=== PATIENT | male | born 2000 | race Caucasian/White ===

== ENCOUNTER 2024-10-20 18:29 | Emergency (ER) | payer OTHER, SELFPAY ==
[2024-10-20 18:33] VITALS: BP 163/88
[2024-10-20 19:01] LABS: % Basophils 0.3 % (0-2); % Eosinophils 0.2 % (0-6); % Immature Granulocytes 0.3 % (0-0.5); % Lymphocytes 14.5 % (20.5-51.1); % Monocytes 6.6 % (1.7-9.3); % Neutrophils 78.1 % (42.2-75.2); Absolute Lymphocytes 1.6 10^3/uL (1.2-3.4); Absolute Monocytes 0.7 10^3/uL (0.1-0.6); Absolute Neutrophils 8.4 10^3/uL (1.4-6.5); Hematocrit 46.8 % (39.0-52.0); Hemoglobin 16.4 g/dL (13.0-18.0); Mean Corpuscular Hgb 31.2 pg (27.0-31.0); Mean Corpuscular Volume 89.1 fL (80.0-94.0); Mean Platelet Volume 9.6 fL (7.4-10.4); Nucleated Red Blood Cells % 0 % (-); Platelet Count 205 10^3/uL (130-400); Red Blood Cell Count 5.25 10^6/uL (4.70-6.10); Red Cell Dist. Width 12.7 % (11.5-14.5); White Blood Cell Count 10.8 10^3/uL (4.8-10.8)
[2024-10-20 19:15] LABS: ALT (SGPT) 43 U/L (0-50); AST (SGOT) 51 U/L (17-59); Albumin 4.8 g/dl (3.5-5.0); Alkaline Phosphatase 54 U/L (38-126); Blood Urea Nitrogen 30 mg/dl (9-20); Calcium 9.3 mg/dl (8.4-10.2); Carbon Dioxide 25 mmol/L (22-30); Chloride 98 mmol/L (98-107); Glucose 138 mg/dl (70-99); Potassium 3.5 mmol/L (3.5-5.1); Sodium 135 mmol/L (135-145); Total Bilirubin 0.8 mg/dl (0.2-1.3); Total Protein 7.1 g/dl (6.3-8.2); eGFR > 60.00
[2024-10-20 19:44] LABS: TSH Reflex To Free T4 3.07 uIU/ml (0.47-4.68)
[2024-10-20 23:14] VITALS: BMI 27.9
[2024-10-20 23:18] VITALS: BP 142/69
[2024-10-21 00:43] LABS: Alcohol None Detected
--- NOTE | 2024-10-21 02:03 | ED.GENMED ---
History of Present Illness
General
Chief Complaint: Medication Reaction
Source: patient and family (Mother and father who are at bedside)
Exam Limitations: none
Time Seen by Provider: 10/20/24 23:49
Nursing documentation reviewed up to this point in time: agreed with
History of Present Illness
History of Present Illness:
This is a 24-year-old male who resides at home with his parents. He admits to prior history of anabolic steroid use which he had been purchasing online but states he discontinued this over a year ago and instead, at least over the past year and a
half he has been purchasing on-line Ibutamoren injectable to build muscle as well as taking multiple mtwh-szi-jczhuib oral supplements including enclomiphene.
Parents bring their son to the ED tonight for evaluation after they have noticed change in his behavior, change in his demeanor more so over the past 3 days where he has been less communicative, withdrawn.
Patient admits that he has difficulty focusing, difficulty with his memory but readily recalls what supplements and medications he has been taking.
He denies alcohol nor drug use.
He takes no prescription medications.
He denies falls or injuries.
When asked if he has been having thoughts of hurting himself or ending his life, he hesitates but then responds that he has had some fleeting thoughts of wanting to hurt himself but no specific plan.
No prior history of psychiatric disorder, no prior history of self injury.
Past History
Past History
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
ED Past Surgical History: Cardiac (WPW ablation at 10 years of age)
Social History
Tobacco: Non-smoker
Alcohol: None
Drug: None
Personal: Single
Living: with family
Employment: Not employed
Family History
Family History: Other (Noncontributory)
Phy Exam
Physical Exam
Physical Exam:
GENERAL: 24-year-old overweight gentleman appears his stated age, awake and alert, oriented x 3. Exhibits a moderately blunted affect. Somewhat guarded but cooperative. Both parents are accompanying.
EYE: pupils equal and reactive. anicteric
NECK: Supple, nontender, no meningismus, no significant adenopathy.
ENT: oral mucosa is moist. No rhinorrhea.
CARDIAC: Regular rate and rhythm. no murmur.
LUNGS: Clear breath sounds bilaterally, no acute respiratory distress, no wheezes/rales/rhonchi
ABDOMEN: Soft, nondistended, without focal tenderness
NEUROLOGICAL: Alert and oriented x3, no focal neuro deficits. Gait is steady.
SKIN: Warm and dry, normal color, skin intact. No rash.
MUSCULOSKELETAL: No C/C/E. peripheral pulses are full and equal b/l. No palpable tenderness.
PSYCH: Moderately blunted affect. Somewhat guarded. When prompted, admits to rare fleeting thoughts of suicide but no definitive plan and no prior history. He denies hallucinations.
Course
Orders/Labs/Results
Orders:
Orders
10/20/24 18:47
ECG [Electrocardiogram (*1)] Urgent
Reason for Study: Palpitations
EKG- Treatment ONCE
10/20/24 18:53
Alcohol Urgent
Complete Blood Count/With Diff Urgent
Comprehensive Metabolic Panel Urgent
TSH Reflex To Free T4 Urgent
10/20/24 23:33
Urine Drug Abuse Screen Urgent
Date Specimen was Collected: 10/21/24
Time Specimen was Collected: 02:25
10/20/24 23:34
Add On- LAB Urgent
Tests Added?: ETOH
10/21/24 00:02
CT Head W/o Iv Contrast Urgent
Reason For Exam: change in MS-confusion
Abnormal Lab Results
10/20/24
18:53
MCH 31.2 H pg
(27.0-31.0)
Absolute Neuts (auto) 8.4 H 10^3/uL
(1.4-6.5)
Absolute Monos (auto) 0.7 H 10^3/uL
(0.1-0.6)
Neutrophils % 78.1 H %
(42.2-75.2)
Lymphocytes % 14.5 L %
(20.5-51.1)
BUN 30 H mg/dl
(9-20)
Glucose 138 H mg/dl
(70-99)
10/20/24 18:53
10/20/24 18:53
Vital Signs
Initial and Last Documented VS:
Initial Vital Signs
Temp Pulse Resp BP Pulse Ox
98.3 F 99 22 163/88 98
10/20/24 18:33 10/20/24 18:33 10/20/24 18:33 10/20/24 18:33 10/20/24 18:33
Last Documented Vital Signs
Temp Pulse Resp BP Pulse Ox
98.3 F 99 22 142/69 95
10/20/24 18:33 10/20/24 18:33 10/20/24 18:33 10/20/24 23:18 10/20/24 23:30
MDM/Problems Addressed
Differential Diagnosis Includes:
Concern for adverse medication reaction, electrolyte abnormality, thyroid disorder, occult drug use, frontal lobe tumor, psychiatric disorder.
Thus far labs are unremarkable. TSH is normal.
Will check EtOH, UDS and will plan for CT of the head.
Ultimately, recommend he discontinue all of the supplements that he is buying off the Internet. Parents readily agreed with his plan. I am not sure patient himself is quite on board.
*Radiology
Radiology exam reviewed: radiology read reviewed
*Pulse Oximetry
Patient hypoxic: no
*Critical Care Note
Total Time (30-74mins, 75-104mins- exclusive of procedures): Not Applicable
Update Note
Update Note:
02:30
Patient remains somewhat guarded but easily communicative.
Denies suicidal thoughts or plan. No hallucinations.
CT of the head is unremarkable.
UDS is pending.
Recommend discontinuing all injectable medications as well as discontinue all supplements he is taking.
Prompt follow-up with PCP for recheck.
ED Attending Note
-
Portions of this chart may have been created with voice recognition software.� Occasional wrong word or��sound alike� substitutions may have occurred due to the inherent limitations of voice recognition software.
Discharge Plan
Departure
Patient Disposition: Home (Routine Discharge)
Date of Disposition: 10/21/24
Time of Disposition:
Patient with high blood pressure during this ER visit?: No
Condition: Good
Discharge Problem:
Adverse drug reaction
Prescriptions:
No Action
amoxicillin-pot clavulanate 875-125 mg tablet
1 tab PO BID Qty: 14 0RF
Referrals:
Magalis Brown MD [Family Provider] - Call in 1-3 days for appt
Activity Restrictions/Additional Instructions:
I recommend you discontinue all injectable as well as oral supplement medications.
Stay well-hydrated on a daily basis.
Follow-up with your primary care physician for recheck.
Interventions
Interventions:
*Risk Screen - Suicide Last Done: 10/20/24 18:33
*General Assessment Last Done: 10/20/24 18:33
*Neglect/Abuse Screening Last Done: 10/20/24 18:33
ED-EENT Assessment Last Done: 10/20/24 23:43
ED- Pulmonary Assessment Last Done: 10/20/24 23:14
ED-Skin Assessment Last Done: 10/20/24 23:43
Discharge Date and Time
Print Language: CONGOLESE
[2024-10-21 02:26] VITALS: BP 121/62
[2024-10-21 02:50] LABS: Amphetamines Negative (Negative); Barbiturates Negative (Negative); Benzodiazepines Negative (Negative); Buprenorphine Negative (Negative); Cocaine Negative (Negative); Marijuana Negative (Negative); Methadone Negative (Negative); Methamphetamines Negative (Negative); Opiates Negative (Negative); Phencyclidine Negative (Negative); Tricyclic Antidepressants Negative (Negative)
[2024-10-21 03:00] VITALS: BP 116/61
== END 2024-10-21 03:05 | disposition home or self-care (01) ==
LOC: EMR 18:29
PROVIDERS: Emergency Medicine; EMERGENCY PHYSICIAN Emergency Medicine; FAMILY PHYSICIAN Family Medicine
DX: R41.82 Altered mental status, unspecified (principal); T50.995A Adverse effect of other drugs, medicaments and biological substances, initial encounter
CPT/HCPCS: 99284; 70450; 80053; 80306; 82077; 84443; 85025; 93005